=== PATIENT | female | born 1940 | race American Indian/Alaskan Native ===

== ENCOUNTER 2018-03-18 12:35 | Inpatient (IN) | payer MEDICARE ==
[2018-03-18 14:33] LABS: BUN/Creatinine Ratio 22; Blood Urea Nitrogen 13 mg/dL (7-17); Calcium 9.5 mg/dL (8.4-10.2); Hemolysis Index 3
[2018-03-18 14:38] LABS: Basophils % (Auto) 0.5 % (0.0-1.8); Eosinophils # (Auto) 0.1 K/mm3 (0.0-0.4); Eosinophils % (Auto) 1.1 % (0.0-4.3); Hematocrit 32.8 % (30.3-42.9); Hemoglobin 10.4 gm/dl (10.1-14.3); Lymphocytes % (Auto) 15.1 % (13.4-35.0); Mean Corpuscular HGB Conc 32 % (30-34); Mean Corpuscular Hemoglobin 27 pg (28-32); Mean Corpuscular Volume 85 fl (79-97); Monocytes # (Auto) 0.5 K/mm3 (0.0-0.8); Monocytes % (Auto) 7.4 % (0.0-7.3); Platelet Count 315 K/mm3 (140-440); Red Blood Count 3.84 M/mm3 (3.65-5.03); Red Cell Distribution Width 16.5 % (13.2-15.2)
--- NOTE | 2018-03-18 18:42 | Emergency Department Report ---
ED General Adult HPI - General Chief complaint: Extremity Injury, Lower Stated complaint: SWOLLEN LEGS/FLUID Time Seen by Provider: 03/18/18 18:41 Source: patient, family Mode of arrival: Wheelchair Limitations: Physical Limitation - History of Present Illness Initial comments: Patient complains of bilateral leg swelling and redness. There is swelling and is worst on the left. -: Gradual, days(s) (3) Location: lower extremity Radiation: non-radiation Severity scale (0 -10): 6 Improves with: none Worsens with: none Associated Symptoms: shortness of breath Treatments Prior to Arrival: none - Related Data Allergies Allergy/AdvReac Type Severity Reaction Status Date / Time Penicillins AdvReac Shortness Verified 03/18/18 13:43 of Breath ED Review of Systems ROS: Stated complaint: SWOLLEN LEGS/FLUID Other details as noted in HPI Comment: All other systems reviewed and negative Constitutional: denies: chills, fever Eyes: denies: eye pain, eye discharge ENT: denies: ear pain, dental pain Respiratory: orthopnea, shortness of breath Cardiovascular: dyspnea on exertion, edema. denies: chest pain, palpitations Endocrine: no symptoms reported Gastrointestinal: denies: abdominal pain, nausea, vomiting, diarrhea Genitourinary: denies: urgency, dysuria, frequency Musculoskeletal: denies: back pain, joint swelling Skin: denies: rash, change in color Neurological: denies: headache, weakness, numbness, paresthesias Psychiatric: denies: anxiety, depression Hematological/Lymphatic: denies: easy bleeding, easy bruising ED Past Medical Hx - Past Medical History Previous Medical History?: Yes Hx Hypertension: Yes Hx Diabetes: Yes - Surgical History Past Surgical History?: Yes Additional Surgical History: cataract surgery - Social History Smoking Status: Never Smoker Substance Use Type: None ED Physical Exam - General Limitations: No Limitations General appearance: alert - Head Head exam: Present: atraumatic, normocephalic, normal inspection - Eye Eye exam: Present: normal appearance, PERRL, EOMI. Absent: scleral icterus Pupils: Present: normal accommodation - ENT ENT exam: Present: normal exam, normal orophraynx, mucous membranes moist - Neck Neck exam: Present: normal inspection, full ROM. Absent: tenderness - Respiratory Respiratory exam: Present: rales, rhonchi, decreased breath sounds - Cardiovascular Cardiovascular Exam: Present: regular rate, normal rhythm, normal heart sounds - GI/Abdominal GI/Abdominal exam: Present: soft, distended, normal bowel sounds. Absent: tenderness, guarding, rebound - Extremities Exam Extremities exam: Present: normal inspection, full ROM, tenderness, normal capillary refill, pedal edema, calf tenderness, other (cellulitis) - Back Exam Back exam: Present: normal inspection, full ROM. Absent: tenderness - Neurological Exam Neurological exam: Present: alert, oriented X3, CN II-XII intact - Psychiatric Psychiatric exam: Present: normal affect, normal mood - Skin Skin exam: Present: warm, dry, erythema ED Course Vital Signs 03/18/18 03/18/18 03/18/18 13:33 18:22 18:31 Temperature 98.5 F Pulse Rate 83 72 Respiratory 19 Rate Blood Pressure 208/98 225/96 Blood Pressure [Right] O2 Sat by Pulse 97 95 93 Oximetry 03/18/18 03/18/18 03/18/18 18:49 19:00 19:01 Temperature 98.2 F Pulse Rate 82 81 Respiratory 18 22 15 Rate Blood Pressure 213/126 Blood Pressure 213/126 [Right] O2 Sat by Pulse 97 95 95 Oximetry 03/18/18 03/18/18 03/18/18 19:15 19:17 20:00 Temperature 98.2 F Pulse Rate 80 80 70 Respiratory 18 16 Rate Blood Pressure 213/126 187/89 Blood Pressure 213/126 [Right] O2 Sat by Pulse 95 96 Oximetry 03/18/18 03/18/18 21:01 21:03 Temperature Pulse Rate 74 71 Respiratory 16 Rate Blood Pressure 184/87 220/107 Blood Pressure [Right] O2 Sat by Pulse 97 Oximetry - Reevaluation(s) Reevaluation #1: 03/18/18 22:07 Discussed patient's care with the hospitalist on-call Dr. Galvez. He will admit patient to the hospital for further evaluation and management. ED Medical Decision Making - Lab Data Result diagrams: 03/18/18 13:54 03/18/18 13:54 - EKG Data -: EKG Interpreted by Me EKG shows normal: sinus rhythm Rate: normal (75) - EKG Data When compared to previous EKG there are: previous EKG unavailable Interpretation: nonspecific ST-T wave autumn, LVH - Radiology Data Radiology results: report reviewed, image reviewed - Medical Decision Making Uncontrolled hypertension. Congestive heart failure exacerbation. Bilateral leg swelling. R/O DVT Critical Care Time: Yes Critical care time in (mins) excluding proc time.: 40 Critical care attestation.: If time is entered above; I have spent that time in minutes in the direct care of this critically ill patient, excluding procedure time. ED Disposition Clinical Impression: Severe uncontrolled hypertension Congestive heart failure (CHF) Qualifiers: Heart failure type: unspecified Heart failure chronicity: acute on chronic Qualified Code(s): I50.9 - Heart failure, unspecified Cellulitis Qualifiers: Site of cellulitis: extremity Site of cellulitis of extremity: lower extremity Laterality: left Qualified Code(s): L03.116 - Cellulitis of left lower limb Disposition: DC-09 OP ADMIT IP TO THIS HOSP Is pt being admited?: Yes Does the pt Need Aspirin: Yes Condition: Stable Instructions: Hypertension (ED) Referrals: FELA MALLOY MD [Primary Care Provider] - 3-5 Days Time of Disposition: 22:11
[2018-03-18] MEDS ORDERED: NORMODYNE IV ONE ×2 (18:54→19:24)
[2018-03-18] MEDS ORDERED: CLEOCIN 900 MG/50 mL 900 MG/50 ML BAG IV ONE (19:24)
[2018-03-18] MEDS ORDERED: VANCOMYCIN PHARMACY TO DOSE IV SCH (20:00)
[2018-03-18] MEDS ORDERED: VANCOMYCIN/NS 1 GM/250 ML 1 GM/250 ML BAG IV SCH (20:00)
--- NOTE | 2018-03-18 21:00 | XRay Report ---
FINAL REPORT PROCEDURE: XR CHEST 1V AP TECHNIQUE: Chest radiograph anteroposterior view. CPT 85318 HISTORY: leg swelling COMPARISON: No prior studies are available for comparison. FINDINGS: Heart: There is mild cardiomegaly. Mediastinum/Vessels: There is mild degree pulmonary venous congestion. Lungs/Pleural space: Lungs are hyperinflated. There are no confluent infiltrates or mass lesions. Pleural spaces are clear.. Bony thorax: No acute osseous abnormality. Life support devices: None. IMPRESSION: COPD Mild cardiomegaly with mild pulmonary venous congestion.
[2018-03-18] MEDS ORDERED: APRESOLINE IV ONE (21:22)
[2018-03-18] MEDS ORDERED: LASIX IV ONE (21:54)
[2018-03-18] MEDS ORDERED: BABY ASPIRIN PO ONE (22:11)
[2018-03-18] MEDS: VANCOMYCIN 1,750 MG in NACL 0.9% 500 ML 500 ML IV SCH (22:20)
[2018-03-18] MEDS ORDERED: MORPHINE IV PRN (22:22)
[2018-03-18] MEDS ORDERED: ZOFRAN IV PRN (22:22)
[2018-03-18] MEDS ORDERED: D50W (25GM) Syringe IV PRN (22:23)
[2018-03-18 22:32] LABS: Bacteria,Urine 1+ /HPF (Negative); Bilirubin,Urine NEG (Negative); Blood,Urine LG (Negative); Color,Urine Yellow (Yellow); Urobilinogen,Urine < 2.0 mg/dL (<2.0)
[2018-03-18 22:34] LABS: RBC,Urine > 182.0 /HPF (0.0-6.0)
[2018-03-19] MEDS ORDERED: PROVENTIL IH PRN (03:21)
--- NOTE | 2018-03-19 06:34 | History and Physical Report ---
CHIEF COMPLAINT: Swelling of the legs. Other complaints include pain in the lower extremities. HISTORY OF PRESENT ILLNESS: The patient is a 78-year-old female who presented to the Emergency Room with swollen leg and feet with pain. Also, the patient complained of redness of the lower extremities and said that the swelling is more on the left than right. There is no history of trauma. There are associated symptoms of shortness of breath with no chest pain. Also, he has no history of fever or chills, nausea or vomiting. The patient was evaluated in the Emergency Room. The patient complained of having blood in the urine. PAST MEDICAL HISTORY: Pertinent for hypertension and diabetes mellitus. PAST SURGICAL HISTORY: Pertinent for cataract surgery. FAMILY HISTORY: Noncontributory. SOCIAL HISTORY: The patient lives with family, does not smoke, does not drink alcohol and does not use illicit drugs. MEDICATIONS: The patient's home medications are not known at this time. ALLERGIES: THE PATIENT IS ALLERGIC TO PENICILLIN. REVIEW OF SYSTEMS: CONSTITUTIONAL: There is no fever, no chills and no diaphoresis. HEENT: There is no headache or sore throat. CARDIOVASCULAR: There is no chest pain or orthopnea. RESPIRATORY: Shortness of breath is present. No cough. GASTROINTESTINAL: There is no nausea, no vomiting, no abdominal pain, diarrhea or constipation. NEUROLOGICAL: There is no numbness, no dizziness, no altered mental status. MUSCULOSKELETAL: There is swelling of the lower extremity and pain and redness and also there are ulcerations in the lower extremities. DERMATOLOGICAL: There is redness in the lower extremities with swelling and ulcerations all over the lower extremities. GENITOURINARY: There is no dysuria, hematuria or flank pain. Rest of system review is normal. PHYSICAL EXAMINATION: GENERAL: At the time of exam, the patient was found to be alert and oriented x3, and not in acute distress. VITAL SIGNS: At the initial time of presentation showed temperature of 98.5 degrees Fahrenheit, pulse of 83, respirations 19, blood pressure of 208/98 and O2 sat of 97% on room air. HEENT: Showed pupils to be equal, round and reactive to light and accommodation. Extraocular muscles are intact. NECK: Supple with no JVD or carotid bruit. CARDIOVASCULAR: Show normal first and second heart sounds with no gallops or murmurs. The patient had 2+ pitting edema. RESPIRATORY: Showed good air entry on both sides of the lungs with no abnormal breath sounds. GASTROINTESTINAL: Show abdomen to be full, soft and nontender with no organomegaly or rigidity. NEUROLOGIC: Shows no focal deficits. MUSCULOSKELETAL: Showed swollen legs, ankles and feet, worse on the left than right. DERMATOLOGICAL: Show hyperpigmentation of the leg and ankle area and multiple ulcerations involving both lower extremities. GENITOURINARY: Show no costovertebral angle tenderness. PERTINENT LABORATORY DATA AND IMAGING STUDIES: The patient has CBC done with normal white count, normal hemoglobin and normal hematocrit and CBC differential showed elevated monocyte count of 7.4% with elevated segmented neutrophils of 75.9%. Coagulation studies show high D-dimer of 621.7. The patient's chemistry show unremarkable renal function. The patient's total CPK was high with a value of 208. Troponin level came back normal. Brain natriuretic peptide level is high with a value of 1180. The patient's urinalysis show elevated urine pH of 8, large urine ketones with moderate urine leukocyte esterase and elevated urine WBC of 17 with high urine RBC of 182 and 1+ bacteria. IMAGING STUDIES: The patient had a chest x-ray done that shows COPD with mild cardiomegaly with mild pulmonary venous congestion. DIAGNOSES: 1. Cellulitis of the legs. 2. Congestive heart failure. 3. Diabetes mellitus. 4. Chronic obstructive pulmonary disease. 5. Hematuria. 6. Urinary tract infection. PLAN OF ACTION: The patient will be admitted to medical floor. We will have complete echocardiogram done this morning. The patient will have Accu-Chek before meals and at bedtime, followed by sliding scale using regular insulin coverage with low dose sliding scale. The patient will be on IV clindamycin 600 mg q. 8 hours for treatment of cellulitis since the patient is allergic to PENICILLIN. We will also continue IV vancomycin started in the Emergency Room with Pharmacy to adjust the dose. The patient will be on IV morphine 2 mg q. 4 hours as needed for pain. The patient will be on IV Zofran 4 mg q. 8 hours for nausea and vomiting. The patient will also be on IV hydralazine 10 mg q. 4 hours for hypertension when blood pressure is 160/90 or more. The patient will be on IV Lasix 40 mg daily. We will have bilateral venous Doppler done this morning because of swollen legs with elevated D-dimer. The patient will be on albuterol nebulizer q. 6 hours as needed for shortness of breath. The patient's home medications will be reconciled and started accordingly when they are known. The patient will be on sequential compressive device with heparin held at this time because of hematuria. The patient's diet will be consistent with carbohydrate 2 g sodium diet. JOB# [id number] OCN/NTS MTDD
[2018-03-19] MEDS: HumuLIN R SUB-Q SCH ×4 (10:54→22:52)
[2018-03-19] MEDS: CLEOCIN 600 MG/50 mL 600 MG/50 ML BAG IV SCH ×4 (12:07→22:54)
[2018-03-19] MEDS: LASIX IV SCH (12:07)
[2018-03-19] MEDS: APRESOLINE IV PRN ×2 (14:34→15:25)
[2018-03-19] MEDS ORDERED: NON-FORMULARY (Oxybutynin Chloride [Ditropan Xl] 10 MG) PO SCH (15:45)
--- NOTE | 2018-03-19 16:12 | Progress Note ---
Assessment and Plan Assessment and plan: Cellulitis both legs. Continue Clindamycin and Vancomycin Hypertensive urgency. Resume home meds:. Amlodipine and Metoprolol. Add Hydralazine iv prn Diabetes mellitus type 2. Check fingerstick glucose q ac and hs Acute pulmonary edema. Started on Lasix. To r/o CHF. Patient denies history of CHF. Elevated d-dimer. CT Al[place]a chest ordered. DVT prophylaxis. Heparin subcut Full code status History Interval history: Bilateral leg swelling, shortness of breath, Hospitalist Physical - Physical exam Narrative exam: General: Not in acute distress, lying in bed, morbidly obese HEENT:Normocephalic, atraumatic Neck:supple,no JVD Lungs: Clear to auscultation bilaterally, no crackles, no wheeze Heart:S1 and S2 regular, no murmurs, rubs or gallop Abd: soft, non tender, non distended, normal bowel sounds Ext: Bilateral lower ext edema, dark skin discoloration, few small ulcers, no clubbing, no cyanosis Neuro: AAO x 3, moves all extremities. - Constitutional Vitals: Temp Pulse Resp BP Pulse Ox 98.4 F 58 L 13 190/100 90 03/19/18 05:25 03/19/18 15:25 03/19/18 00:01 03/19/18 15:25 03/19/18 00:01 Results - Labs CBC & Chem 7: 03/18/18 13:54 03/18/18 13:54 Labs: Laboratory Last Values WBC 6.9 K/mm3 (4.5-11.0) 03/18/18 13:54 RBC 3.84 M/mm3 (3.65-5.03) 03/18/18 13:54 Hgb 10.4 gm/dl (10.1-14.3) 03/18/18 13:54 Hct 32.8 % (30.3-42.9) 03/18/18 13:54 MCV 85 fl (79-97) 03/18/18 13:54 MCH 27 pg (28-32) L 03/18/18 13:54 MCHC 32 % (30-34) 03/18/18 13:54 RDW 16.5 % (13.2-15.2) H 03/18/18 13:54 Plt Count 315 K/mm3 (140-440) 03/18/18 13:54 Lymph % (Auto) 15.1 % (13.4-35.0) 03/18/18 13:54 [place] % (Auto) 7.4 % (0.0-7.3) H 03/18/18 13:54 Eos % (Auto) 1.1 % (0.0-4.3) 03/18/18 13:54 Baso % (Auto) 0.5 % (0.0-1.8) 03/18/18 13:54 Lymph # 1.0 K/mm3 (1.2-5.4) L 03/18/18 13:54 [place] # 0.5 K/mm3 (0.0-0.8) 03/18/18 13:54 Eos # 0.1 K/mm3 (0.0-0.4) 03/18/18 13:54 Baso # 0.0 K/mm3 (0.0-0.1) 03/18/18 13:54 Seg Neutrophils % 75.9 % (40.0-70.0) H 03/18/18 13:54 Seg Neutrophils # 5.3 K/mm3 (1.8-7.7) 03/18/18 13:54 D-Dimer 621.73 ng/mlDDU (0-234) H 03/18/18 19:45 Sodium 139 mmol/L (137-145) 03/18/18 13:54 Potassium 4.1 mmol/L (3.6-5.0) 03/18/18 13:54 Chloride 98.6 mmol/L (98-107) 03/18/18 13:54 Carbon Dioxide 28 mmol/L (22-30) 03/18/18 13:54 Anion Gap 17 mmol/L 03/18/18 13:54 BUN 13 mg/dL (7-17) 03/18/18 13:54 Creatinine 0.6 mg/dL (0.7-1.2) L 03/18/18 13:54 Estimated GFR > 60 ml/min 03/18/18 13:54 BUN/Creatinine Ratio 22 % 03/18/18 13:54 Glucose 114 mg/dL (65-100) H 03/18/18 13:54 POC Glucose 115 (70-105) H 03/19/18 15:50 Calcium 9.5 mg/dL (8.4-10.2) 03/18/18 13:54 Total Creatine Kinase 208 units/L (30-135) H 03/18/18 19:45 Troponin T < 0.010 ng/mL (0.00-0.029) 03/18/18 19:45 NT-Pro-B Natriuret Pep 1180 pg/mL (0-900) H 03/18/18 19:45 Urine Color Yellow (Yellow) 03/18/18 22:00 Urine Turbidity Clear (Clear) 03/18/18 22:00 Urine pH 8.0 (5.0-7.0) H 03/18/18 22:00 Ur Specific [place] 1.008 (1.003-1.030) 03/18/18 22:00 Urine Protein 30 mg/dl mg/dL (Negative) 03/18/18 22:00 Urine Glucose (UA) Neg mg/dL (Negative) 03/18/18 22:00 Urine Ketones Neg mg/dL (Negative) 03/18/18 22:00 Urine Blood Lg (Negative) 03/18/18 22:00 Urine Nitrite Neg (Negative) 03/18/18 22:00 Urine Bilirubin Neg (Negative) 03/18/18 22:00 Urine Urobilinogen < 2.0 mg/dL (<2.0) 03/18/18 22:00 Ur Leukocyte Esterase Mod (Negative) 03/18/18 22:00 Urine WBC (Auto) 17.0 /HPF (0.0-6.0) H 03/18/18 22:00 Urine RBC (Auto) > 182.0 /HPF (0.0-6.0) 03/18/18 22:00 U Epithel Cells (Auto) 2.0 /HPF (0-13.0) 03/18/18 22:00 Urine Bacteria (Auto) 1+ /HPF (Negative) 03/18/18 22:00
[2018-03-19] MEDS: HEPARIN SUB-Q SCH ×2 (16:45→22:52)
[2018-03-19] MEDS: NORVASC PO SCH (16:45)
[2018-03-19] MEDS: DITROPAN XL PO SCH (16:45)
[2018-03-19] MEDS: TOPROL XL PO SCH (16:45)
[2018-03-19] MEDS ORDERED: LATANOPROST 0.005% OU SCH (18:00)
[2018-03-19] MEDS ORDERED: NON-FORMULARY (Bimatoprost [Lumigan 0.01%] 1 DROP) OP SCH (18:00)
--- NOTE | 2018-03-19 20:33 | Cat Scan Report ---
FINAL REPORT PROCEDURE: CT ANGIO CHEST TECHNIQUE: Computerized tomographic angiography of the chest was performed after the IV injection of iodinated nonionic contrast including image processing. The image data was postprocessed using 2-dimensional multiplanar reformatted (MPR) and 3-dimensional (MIP and/or volume rendered) techniques. HISTORY: elevated d-dimer COMPARISON: No prior studies are available for comparison. FINDINGS: There is suboptimal opacification of the pulmonary arterial tree. No obvious filling defects are identified in the pulmonary arterial tree. Aorta is of normal caliber without evidence of dissection. Hilar structures are within normal limits. There is no lymphadenopathy. An ill-defined hypodense nodule is noted involving the right lobe thyroid measuring 3.3 x 4.5 centimeters. Small hiatal hernia is noted. Bilateral lungs and pleural spaces are clear. Moderate degree degenerative changes are noted involving costovertebral joints bilaterally. Vertebral height is normal. IMPRESSION: Limited study due to suboptimal opacification of pulmonary arterial tree. However there is no obvious evidence of pulmonary embolism. No acute pulmonary process A dominant mass is noted in the right lobe thyroid. A neoplasm cannot be excluded. Ultrasound evaluation is recommended.
[2018-03-19] MEDS: LATANOPROST 0.005% OU SCH (22:51)
[2018-03-19] MEDS: VANCOMYCIN 1,750 MG in NACL 0.9% 500 ML 500 ML IV SCH (22:52)
[2018-03-20] MEDS: HEPARIN SUB-Q SCH ×3 (06:24→22:12)
[2018-03-20] MEDS: CLEOCIN 600 MG/50 mL 600 MG/50 ML BAG IV SCH ×3 (06:24→22:13)
[2018-03-20] MEDS: HumuLIN R SUB-Q SCH ×4 (08:21→22:15)
[2018-03-20] MEDS: LASIX IV SCH (10:15)
[2018-03-20] MEDS: TOPROL XL PO SCH (10:16)
[2018-03-20] MEDS: DITROPAN XL PO SCH (10:16)
[2018-03-20] MEDS: NORVASC PO SCH (10:16)
--- NOTE | 2018-03-20 12:53 | Consultation ---
History of Present Illness Consult date: 03/20/18 Consult reason: shortness of breath, other (Pulmonary edema) History of present illness: This is a 78yr old woman who gives a history of chronic bilateral lower extremity venous insufficiency, diabetes and hypertension. She denies a prior cardiac history. There is no prior cardiac workup. She was brought to this hospital with complaints of edema with weeping of legs. A cardiac consultation was requested for shortness of breath and pulmonary edema. A chest xray reports mild cardiomegaly with mild congestion. Patient denies shortness of breath and chest pain. Further cardiac evaluation with an echocardiogram reveals a normal left ventricular systolic function, ejection fraction 55-60%. 12 lead ECG is benign, a normal sinus rhythm. Medications and Allergies Allergies Allergy/AdvReac Type Severity Reaction Status Date / Time Penicillins AdvReac Shortness Verified 03/18/18 13:43 of Breath Home Medications Medication Instructions Recorded Confirmed Last Taken Type Amlodipine Besylate [Norvasc] 5 mg PO DAILY 03/19/18 03/19/18 Unknown History AtorvaSTATin [Lipitor] 10 mg PO QHS 03/19/18 03/19/18 Unknown History Bimatoprost [Lumigan 0.01%] 1 drop OP QPM 03/19/18 03/19/18 Unknown History Metoprolol Succinate 100 mg PO DAILY 03/19/18 03/19/18 Unknown History Oxybutynin Chloride [Ditropan Xl] 10 mg PO QDAY 03/19/18 03/19/18 Unknown History Active Meds: Active Medications Albuterol (Proventil) 2.5 mg IH Q4HRT PRN PRN Reason: Shortness Of Breath Amlodipine Besylate (Norvasc) 5 mg PO DAILY [facility] Last Admin: 03/20/18 10:16 Dose: 5 mg Atorvastatin Calcium (Lipitor) 10 mg PO QHS [facility] Last Admin: 03/19/18 23:09 Dose: 10 mg Dextrose (D50w (25gm) Syringe) 50 ml IV PRN PRN PRN Reason: Hypoglycemia Furosemide (Lasix) 40 mg IV DAILY [facility] Last Admin: 03/20/18 10:15 Dose: 40 mg Heparin Sodium (Porcine) (Heparin) 5,000 unit SUB-Q Q8HR [facility] Last Admin: 03/20/18 06:24 Dose: 5,000 unit Hydralazine HCl (Apresoline) 10 mg IV Q4H PRN PRN Reason: Hypertension Last Admin: 03/19/18 15:25 Dose: 10 mg Vancomycin HCl 1,750 mg/ (Sodium Chloride) 517.5 mls @ 258.75 mls/hr IV Q24H [facility] Last Admin: 03/19/18 22:52 Dose: 258.75 mls/hr Clindamycin HCl (Cleocin 600 Mg/50 Ml) 600 mg in 50 mls @ 100 mls/hr IV Q8HR [facility]; Protocol Last Admin: 03/20/18 06:24 Dose: 100 mls/hr Insulin Human Regular (Humulin R) 0 units SUB-Q AC [facility]; Protocol Last Admin: 03/20/18 08:21 Dose: Not Given Insulin Human Regular (Humulin R) 0 units SUB-Q QHS [facility]; Protocol Last Admin: 03/19/18 22:52 Dose: Not Given Latanoprost (Latanoprost 0.005%) 1 drops OU HS [facility] Last Admin: 03/19/18 22:51 Dose: 1 drops Metoprolol Succinate (Toprol Xl) 100 mg PO DAILY [facility] Last Admin: 03/20/18 10:16 Dose: 100 mg Morphine Sulfate (Morphine) 2 mg IV Q4H PRN PRN Reason: Pain, Moderate (4-6) Ondansetron HCl (Zofran) 4 mg IV Q8H PRN PRN Reason: Nausea And Vomiting Oxybutynin Chloride (Ditropan Xl) 10 mg PO QDAY [facility] Last Admin: 03/20/18 10:16 Dose: 10 mg Vancomycin HCl (Vancomycin Pharmacy To Dose) 1 each IV PKCONSULT [facility] Physical Examination Vital Signs Temp Pulse BP Pulse Ox 98.5 F 83 208/98 97 03/18/18 13:33 03/18/18 13:33 03/18/18 13:33 03/18/18 13:33 General appearance: no acute distress HEENT: Positive: PERRL Cardiac: Positive: Reg Rate and Rhythm Lungs: Positive: Decreased Breath Sounds Neuro: Positive: Grossly Intact Results 03/18/18 13:54 03/18/18 13:54 Assessment and Plan Chronic bilateral lower extremity venous insufficiency Diabetes Hypertension Echocardiogram reveals a normal left ventricular systolic function, ejection fraction 55-60%. No further cardiac workup indicated. Patient will f/u with [facility] in 2 weeks for further outpatient cardiac evaluation with a persantine thallium test.
[2018-03-20] MEDS ORDERED: NORVASC PO STA (13:16)
--- NOTE | 2018-03-20 13:17 | Progress Note ---
Assessment and Plan Assessment and plan: Cellulitis both legs. Continue Clindamycin and Vancomycin Hypertensive urgency. BP still uncontrolled Resumed home meds:. Amlodipine and Metoprolol. Add Hydralazine 50mg po q8hr. Increase Norvasc to 10mg po daily Diabetes mellitus type 2. Check fingerstick glucose q ac and hs Acute pulmonary edema. Started on Lasix. To r/o CHF. Patient denies history of CHF. Elevated D-dimer. CT Angio chest ordered. DVT prophylaxis. Heparin subcut Full code status History Interval history: Bilateral leg swelling,improving Less shortness of breath, Hospitalist Physical - Physical exam Narrative exam: General: Not in acute distress, lying in bed, morbidly obese HEENT:Normocephalic, atraumatic Neck:supple,no JVD Lungs: Clear to auscultation bilaterally, no crackles, no wheeze Heart:S1 and S2 regular, no murmurs, rubs or gallop Abd: soft, non tender, non distended, normal bowel sounds Ext: Bilateral lower ext edema, dark skin discoloration, few small ulcers, no clubbing, no cyanosis Neuro: AAO x 3, moves all extremities. - Constitutional Vitals: Temp Pulse Resp BP Pulse Ox 97.4 F L 74 18 176/97 95 03/20/18 12:26 03/20/18 12:26 03/20/18 12:26 03/20/18 12:26 03/20/18 12:26 General appearance: Present: no acute distress Results - Labs CBC & Chem 7: 03/18/18 13:54 03/18/18 13:54 Labs: Laboratory Last Values WBC 6.9 K/mm3 (4.5-11.0) 03/18/18 13:54 RBC 3.84 M/mm3 (3.65-5.03) 03/18/18 13:54 Hgb 10.4 gm/dl (10.1-14.3) 03/18/18 13:54 Hct 32.8 % (30.3-42.9) 03/18/18 13:54 MCV 85 fl (79-97) 03/18/18 13:54 MCH 27 pg (28-32) L 03/18/18 13:54 MCHC 32 % (30-34) 03/18/18 13:54 RDW 16.5 % (13.2-15.2) H 03/18/18 13:54 Plt Count 315 K/mm3 (140-440) 03/18/18 13:54 Lymph % (Auto) 15.1 % (13.4-35.0) 03/18/18 13:54 [place] % (Auto) 7.4 % (0.0-7.3) H 03/18/18 13:54 Eos % (Auto) 1.1 % (0.0-4.3) 03/18/18 13:54 Baso % (Auto) 0.5 % (0.0-1.8) 03/18/18 13:54 Lymph # 1.0 K/mm3 (1.2-5.4) L 03/18/18 13:54 [place] # 0.5 K/mm3 (0.0-0.8) 03/18/18 13:54 Eos # 0.1 K/mm3 (0.0-0.4) 03/18/18 13:54 Baso # 0.0 K/mm3 (0.0-0.1) 03/18/18 13:54 Seg Neutrophils % 75.9 % (40.0-70.0) H 03/18/18 13:54 Seg Neutrophils # 5.3 K/mm3 (1.8-7.7) 03/18/18 13:54 D-Dimer 621.73 ng/mlDDU (0-234) H 03/18/18 19:45 Sodium 139 mmol/L (137-145) 03/18/18 13:54 Potassium 4.1 mmol/L (3.6-5.0) 03/18/18 13:54 Chloride 98.6 mmol/L (98-107) 03/18/18 13:54 Carbon Dioxide 28 mmol/L (22-30) 03/18/18 13:54 Anion Gap 17 mmol/L 03/18/18 13:54 BUN 13 mg/dL (7-17) 03/18/18 13:54 Creatinine 0.6 mg/dL (0.7-1.2) L 03/18/18 13:54 Estimated GFR > 60 ml/min 03/18/18 13:54 BUN/Creatinine Ratio 22 % 03/18/18 13:54 Glucose 114 mg/dL (65-100) H 03/18/18 13:54 POC Glucose 112 (70-105) H 03/20/18 12:22 Calcium 9.5 mg/dL (8.4-10.2) 03/18/18 13:54 Total Creatine Kinase 208 units/L (30-135) H 03/18/18 19:45 Troponin T < 0.010 ng/mL (0.00-0.029) 03/18/18 19:45 NT-Pro-B Natriuret Pep 1180 pg/mL (0-900) H 03/18/18 19:45 Urine Color Yellow (Yellow) 03/18/18 22:00 Urine Turbidity Clear (Clear) 03/18/18 22:00 Urine pH 8.0 (5.0-7.0) H 03/18/18 22:00 Ur Specific [place] 1.008 (1.003-1.030) 03/18/18 22:00 Urine Protein 30 mg/dl mg/dL (Negative) 03/18/18 22:00 Urine Glucose (UA) Neg mg/dL (Negative) 03/18/18 22:00 Urine Ketones Neg mg/dL (Negative) 03/18/18 22:00 Urine Blood Lg (Negative) 03/18/18 22:00 Urine Nitrite Neg (Negative) 03/18/18 22:00 Urine Bilirubin Neg (Negative) 03/18/18 22:00 Urine Urobilinogen < 2.0 mg/dL (<2.0) 03/18/18 22:00 Ur Leukocyte Esterase Mod (Negative) 03/18/18 22:00 Urine WBC (Auto) 17.0 /HPF (0.0-6.0) H 03/18/18 22:00 Urine RBC (Auto) > 182.0 /HPF (0.0-6.0) 03/18/18 22:00 U Epithel Cells (Auto) 2.0 /HPF (0-13.0) 03/18/18 22:00 Urine Bacteria (Auto) 1+ /HPF (Negative) 03/18/18 22:00
[2018-03-20] MEDS: APRESOLINE PO SCH ×2 (13:30→22:12)
[2018-03-20] MEDS: LATANOPROST 0.005% OU SCH (22:14)
[2018-03-20] MEDS: VANCOMYCIN 1,750 MG in NACL 0.9% 500 ML 500 ML IV SCH (22:14)
[2018-03-21] MEDS: HEPARIN SUB-Q SCH ×2 (05:28→13:37)
[2018-03-21] MEDS: APRESOLINE PO SCH ×2 (05:29→13:36)
[2018-03-21] MEDS: CLEOCIN 600 MG/50 mL 600 MG/50 ML BAG IV SCH ×2 (05:30→13:36)
[2018-03-21] MEDS ORDERED: NORVASC PO SCH (08:00)
[2018-03-21] MEDS: HumuLIN R SUB-Q SCH ×2 (08:19→12:58)
[2018-03-21] MEDS: DITROPAN XL PO SCH (09:35)
[2018-03-21] MEDS: TOPROL XL PO SCH (09:38)
[2018-03-21] MEDS: LASIX IV SCH (09:39)
--- NOTE | 2018-03-21 10:57 | Progress Note ---
Assessment and Plan Acute diastolic heart failure class III symptoms on presentation improving Chronic LE edema and bilateral venostasis Normal LVEF Type II DM Systemic Hypertension Morbid obesity Recommendations: Afterload reduction and gentle diuresis for acute diastolic heart failure Outpatient ischemic evaluation Subjective Date of service: 03/21/18 Principal diagnosis: Diastolic heart failure Interval history: Reports feeling much better Objective Vital Signs Temp Pulse Resp BP BP Pulse Ox 03/21/18 05:29 67 145/67 03/21/18 04:19 67 145/67 100 03/21/18 04:18 98.4 F 66 18 145/67 99 03/20/18 23:57 98.5 F 76 18 149/66 100 03/20/18 23:50 77 03/20/18 22:12 77 149/69 03/20/18 19:06 77 149/69 97 03/20/18 19:05 98.4 F 78 20 149/69 96 03/20/18 15:57 98.1 F 73 18 146/66 95 03/20/18 12:26 97.4 F L 74 18 176/97 95 - Physical Examination Narrative exam: Physical examination Vitals reviewed GEN: No acute distress noted, moderately obese HEENT: Carotids 2+ NECK: Supple CVS: S1 and S2 heard no significant murmur or gallop noted LUNGS/CHEST: Normal auscultation ABD: Soft nontender Extremities: dry 1 + edema NEURO: Alert moves all all 4 extremities PSY: Stable HEENT: Positive: PERRL Neuro: Positive: Grossly Intact
[2018-03-21 14:41] VITALS: BP 149/70
--- NOTE | 2018-03-21 16:29 | Discharge Summary ---
Providers - Providers Date of Admission: 03/18/18 22:14 Date of discharge: 03/21/18 Attending physician: MABEL KRAMER 03/19/18 16:16 Consult to Cardiology [CONS] Routine Consulting Provider: RAJAN WOODS Reason For Exam: Shortness of breath,pulmonary edema Primary care physician: FELA MALLOY Hospitalization Condition: Fair Disposition: DC/[place]-06 HOME UNDER HOME [facility] Core Measure Documentation - Palliative Care Palliative Care/ Comfort Measures: Not Applicable - Core Measures Any of the following diagnoses?: heart failure - Heart Failure Discharge Requirements LUCI/ARB for LVSD if EF <40%: Not Applicable Beta bernie at discharge: Yes Exam - Constitutional Vitals: Temp Pulse Resp BP Pulse Ox 97.8 F 76 22 149/70 95 03/21/18 12:38 03/21/18 14:39 03/21/18 12:38 03/21/18 14:39 03/21/18 14:39 Plan Activity: advance as tolerated Diet: low fat, low cholesterol, low salt Special Instructions: physical therapy, home health RN Additional Instructions: 1.Follow up with PCP in 3-5 days. 2.Follow up with Dr. Carreno in 1 week. 3.Follow up with PCP in 2-3 days to follow up about thyroid mass. 4.Follow up with ENT Surgeon, Dr. Baum in 2-3 days for evaluation of thyroid mass. 5.Home health RN and home health PT Follow up with: FELA MALLOY MD [Primary Care Provider] - 3-5 Days Prescriptions: amLODIPine [Norvasc] 10 mg PO DAILY #30 tab Clindamycin [Clindamycin CAP] 300 mg PO Q8H #5 cap Furosemide [Lasix] 20 mg PO QDAY #30 tablet Hydralazine HCl 50 mg PO TID #90 tablet
--- NOTE | 2018-03-24 06:56 | Ultrasound Report ---
FINAL REPORT PROCEDURE: THYROID UPDATE AND SCAN TECHNIQUE: Focused real-time sonography in multiple planes of the below described organs, glands and soft tissues of the neck was performed with image documentation. CPT 35838 HISTORY: thyroid mass; thyroid scan COMPARISON: No prior studies are available for comparison. FINDINGS: The right thyroid lobe measures 7.8 x 3.8 x 6.5. Left thyroid lobe measures 4.8 x 1.9 x 81.5 centimeters. Thyroid isthmus measures 11.6 millimeters. There is a mass in the right thyroid measuring 4.5 x 3.1 x 5.7 centimeters. There is a nodule in the thyroid isthmus measuring 12 x 9 x 9 millimeters. IMPRESSION: Multinodular goiter. Malignant right thyroid nodule cannot be entirely excluded on the basis of ultrasound alone.
== END 2018-03-21 08:45 | disposition home health service (06) | DRG 602 ==
LOC: ED 12:35 → 2B-ACE 22:14 → 4A 03-19 00:05
PROVIDERS: ADMIT Internal Medicine; ATTEND Internal Medicine
DX: L03.115 Cellulitis of right lower limb (principal); I50.31 Acute diastolic (congestive) heart failure; N39.0 Urinary tract infection, site not specified; Z68.41 Body mass index [BMI] 40.0-44.9, adult; I11.0 Hypertensive heart disease with heart failure; L03.116 Cellulitis of left lower limb; I16.0 Hypertensive urgency; R31.9 Hematuria, unspecified; Z88.0 Allergy status to penicillin; E11.9 Type 2 diabetes mellitus without complications; Z98.49 Cataract extraction status, unspecified eye; J44.9 Chronic obstructive pulmonary disease, unspecified; I87.8 Other specified disorders of veins; E66.01 Morbid (severe) obesity due to excess calories
CPT/HCPCS: 36415; 71045; 71275; 76536; 80048; 81001; 82550; 82962; 83880; 84484; 85025; 85379; 93005; 93010; 93306; 93970; 99291; A9270-GY; J0360; J1644; J1940; J3370; J7040; Q9967

== ENCOUNTER 2018-12-28 10:22 | Outpatient (CLI) | payer MEDICARE ==
--- NOTE | 2018-12-28 15:27 | Mammography Report ---
BILATERAL DIGITAL SCREENING MAMMOGRAM with CAD: 12/28/18 10:22:00 CLINICAL: Routine screening. COMPARISON:None available. However, the patient indicated that she has had a previous mammogram at [facility]. FINDINGS: The patient was unable to stand so the examination was performed in a wheelchair. Suboptimal positioning is also related to the fact that the arms could not be removed from the wheelchair. There are scattered areas of fibroglandular density. No mass, architectural distortion or suspicious calcifications. IMPRESSION: No mammographic evidence of malignancy. BI-RADS CATEGORY: 2 -- Benign RECOMMENDATION: Routine mammographic screening in one year. We will attempt to obtain a comparison mammogram and make an addendum to this report. COMMENT: Patient follow-up letters are generated by our [employer] application.
== END 2018-12-28 10:23 | disposition home or self-care (01) ==
LOC: MAMMO 10:22
PROVIDERS: ATTEND Internal Medicine
DX: Z12.31 Encounter for screening mammogram for malignant neoplasm of breast (principal); I11.0 Hypertensive heart disease with heart failure; I50.31 Acute diastolic (congestive) heart failure; E66.01 Morbid (severe) obesity due to excess calories
CPT/HCPCS: 77067

== ENCOUNTER 2019-04-22 15:03 | Outpatient (CLI) | payer MEDICARE ==
--- NOTE | 2019-04-22 16:16 | XRay Report ---
LEFT SHOULDER HISTORY: Pain. COMPARISON: None. TECHNIQUE: 3 views of the left shoulder were obtained. FINDINGS Bones: No fracture or dislocation. Joint spaces: Mild glenohumeral joint and acromioclavicular joint arthritis. Soft tissues: No significant abnormality. Additional findings: None. IMPRESSION: 1. Mild arthritis. Signer Name: Naren Best MD Signed: 04/22/2019 4:12 PM Workstation Name: [id number]
== END 2019-04-22 15:04 | disposition home or self-care (01) ==
LOC: XRAY 15:03
PROVIDERS: ATTEND Internal Medicine
DX: M19.012 Primary osteoarthritis, left shoulder (principal); I11.0 Hypertensive heart disease with heart failure; I50.31 Acute diastolic (congestive) heart failure

== ENCOUNTER 2019-04-27 08:54 | Outpatient (CLI) | payer MEDICARE ==
[2019-04-27 10:42] LABS: Chol/HDL Ratio 3.36 %
[2019-04-30 11:20] LABS: Vitamin D, 25-OH, D2 34 ng/mL
== END 2019-04-27 08:55 | disposition home or self-care (01) ==
LOC: LAB 08:54
PROVIDERS: ATTEND Internal Medicine
DX: E11.9 Type 2 diabetes mellitus without complications (principal); E55.9 Vitamin D deficiency, unspecified; E78.5 Hyperlipidemia, unspecified; I11.0 Hypertensive heart disease with heart failure; I50.9 Heart failure, unspecified
CPT/HCPCS: 36415; 80061; 82306; 83036

== ENCOUNTER 2019-07-20 10:15 | Emergency (ER) | payer MEDICARE ==
[2019-07-20] MEDS ORDERED: amLODIPine 5 MG TAB PO ONE (11:45)
--- NOTE | 2019-07-20 12:47 | Event Note ---
Date of service: 07/20/19 Face to Face: Patient sent to the emergency room for evaluation of asymptomatic and painless hypertension. Patient endorsed to my colleague that she's been sporadically compliant with her antihypertensive therapy. However, once family into the room, she endorsed compliance with her antihypertensive therapy. The patient does not endorse headache, neck pain, chest pain, loss of vision at this time. She is afebrile with reassuring vital signs and appears quite comfortable. Her main complaint appears to be chronic dental issues, and chronic arthritic discomfort. Patient and family were counseled that they should remain compliant with antihypertensive therapy, and that emergent decrease of blood pressure in the ER is not recommended, as it may induce acute end organ dysfunction. Please reference the [employer] clinical policy on hypertension which is not acutely symptomatic. Patient was specifically counseled that long-term complications of hypertension may result in disability, paralysis, stroke, heart attack, loss of quality of life. Daughter at the [facility], and indicates that they're reliable to follow-up at the outpatient primary care doctor. Vital Signs 07/20/19 07/20/19 07/20/19 10:28 11:03 12:27 Temperature 99 F Pulse Rate 82 83 84 Respiratory 18 16 16 Rate Blood Pressure 201/91 211/120 203/96 [Right] O2 Sat by Pulse 99 97 98 Oximetry
--- NOTE | 2019-07-20 13:25 | Emergency Department Report ---
ED General Adult HPI - General Chief complaint: High BP Stated complaint: HBP Time Seen by Provider: 07/20/19 11:41 Source: patient Mode of arrival: Wheelchair Limitations: Physical Limitation - History of Present Illness Initial comments: 79-year-old Citizen Of [place] female with a known past medical history obesity, heart disease/CHF, diabetes, hypertension presents to emergency department with her daughter D dentist office. Apparently her blood pressure was 246/126. Ms. Alex she denies any chest pain or headache. Reports no blurred vision, no numbness, no tingling no weakness. No vision changes. States she feels normal but admits to not utilizing her blood pressure medication this morning and also she did report when going compliance issues. She denies any adverse effect to the medication when she utilizes it. Radiation: non-radiation Severity scale (0 -10): 0 Consistency: constant Improves with: none Worsens with: none Treatments Prior to Arrival: none - Related Data Home Medications Medication Instructions Recorded Confirmed Last Taken AtorvaSTATin [Lipitor] 10 mg PO QHS 03/19/18 03/19/18 Unknown Bimatoprost [Lumigan 0.01%] 1 drop OP QPM 03/19/18 03/19/18 Unknown Metoprolol Succinate 100 mg PO DAILY 03/19/18 03/19/18 Unknown Oxybutynin Chloride [Ditropan Xl] 10 mg PO QDAY 03/19/18 03/19/18 Unknown Previous Rx's Medication Instructions Recorded Last Taken Type Clindamycin [Clindamycin CAP] 300 mg PO Q8H #5 cap 03/21/18 Unknown Rx Furosemide [Lasix] 20 mg PO QDAY #30 tablet 03/21/18 Unknown Rx Hydralazine HCl 50 mg PO TID #90 tablet 03/21/18 Unknown Rx amLODIPine [Norvasc] 10 mg PO DAILY #30 tab 03/21/18 Unknown Rx Allergies Allergy/AdvReac Type Severity Reaction Status Date / Time Penicillins AdvReac Shortness Verified 07/20/19 10:30 of Breath ED Review of Systems ROS: Stated complaint: HBP Other details as noted in HPI Comment: All other systems reviewed and negative ED Past Medical Hx - Past Medical History Previous Medical History?: Yes Hx Hypertension: Yes Hx Congestive Heart Failure: Yes Hx Diabetes: Yes - Surgical History Past Surgical History?: Yes Additional Surgical History: cataract surgery - Social History Smoking Status: Never Smoker Substance Use Type: None - Medications Home Medications: Home Medications Medication Instructions Recorded Confirmed Last Taken Type AtorvaSTATin [Lipitor] 10 mg PO QHS 03/19/18 03/19/18 Unknown History Bimatoprost [Lumigan 0.01%] 1 drop OP QPM 03/19/18 03/19/18 Unknown History Metoprolol Succinate 100 mg PO DAILY 03/19/18 03/19/18 Unknown History Oxybutynin Chloride [Ditropan Xl] 10 mg PO QDAY 03/19/18 03/19/18 Unknown History Clindamycin [Clindamycin CAP] 300 mg PO Q8H #5 cap 03/21/18 Unknown Rx Furosemide [Lasix] 20 mg PO QDAY #30 tablet 03/21/18 Unknown Rx Hydralazine HCl 50 mg PO TID #90 tablet 03/21/18 Unknown Rx amLODIPine [Norvasc] 10 mg PO DAILY #30 tab 03/21/18 Unknown Rx ED Physical Exam - General Limitations: Physical Limitation General appearance: alert, in no apparent distress - Head Head exam: Present: atraumatic, normocephalic - Eye Eye exam: Present: normal appearance, PERRL, EOMI Pupils: Present: normal accommodation - ENT ENT exam: Present: normal exam, mucous membranes moist - Neck Neck exam: Present: normal inspection - Respiratory Respiratory exam: Present: normal lung sounds bilaterally. Absent: respiratory distress, wheezes, rales, rhonchi, chest wall tenderness, accessory muscle use, decreased breath sounds - Cardiovascular Cardiovascular Exam: Present: regular rate, normal rhythm. Absent: systolic murmur, diastolic murmur, rubs, gallop - GI/Abdominal GI/Abdominal exam: Present: soft, normal bowel sounds - Extremities Exam Extremities exam: Present: normal inspection - Back Exam Back exam: Present: normal inspection. Absent: CVA tenderness (R), CVA tenderness (L) - Neurological Exam Neurological exam: Present: alert, oriented X3, CN II-XII intact. Absent: altered, motor sensory deficit - Psychiatric Psychiatric exam: Present: normal affect, normal mood - Skin Skin exam: Present: warm, dry, intact, normal color. Absent: rash ED Course Vital Signs 07/20/19 07/20/19 07/20/19 10:28 11:03 12:27 Temperature 99 F Pulse Rate 82 83 84 Respiratory 18 16 16 Rate Blood Pressure 201/91 211/120 203/96 [Right] O2 Sat by Pulse 99 97 98 Oximetry ED Medical Decision Making - Medical Decision Making 79-year-old Citizen [place] female with chronic history of hypertension and history current history of medication noncompliance presented to emergency department via her dentist for elevated blood pressure. States her blood pressure primarily was in the low 200s over 90-100. She is asymptomatic at this time alert and oriented 3 understands the importance of compliance and she also understands the risks she is taken with a lack of compliance. I discussed with her in detail the need for compliance and the risk. She is aware that a lack of compliance could result in the following but not limited to, heart disease, kidney disease, stroke, heart failure, paralysis, pain, headache Critical care attestation.: If time is entered above; I have spent that time in minutes in the direct care of this critically ill patient, excluding procedure time. ED Disposition Clinical Impression: Chronic hypertension Disposition: DC-01 TO HOME OR SELFCARE Is pt being admited?: No Does the pt Need Aspirin: No Condition: Stable Instructions: Hypertension (ED) Additional Instructions: Results please be compliant with her hypertension medications as we discussed. You unable to be completely compliant a mirror ER complementing medical issues including but not limited to heart attack, stroke, paralysis, chronic kidney disease, pain, headache, heart failure. Referrals: PRIMARY CARE, [Primary Care Provider] - 3-5 Days
[2019-07-20 13:38] VITALS: BP 211/98
== END 2019-07-20 13:40 | disposition home or self-care (01) ==
LOC: ED 10:15
DX: I11.0 Hypertensive heart disease with heart failure (principal); I50.9 Heart failure, unspecified; E11.9 Type 2 diabetes mellitus without complications; Z79.899 Other long term (current) drug therapy; Z88.0 Allergy status to penicillin
CPT/HCPCS: 99283

== ENCOUNTER 2019-09-24 09:23 | Outpatient (CLI) | payer MEDICARE ==
[2019-09-24 10:04] LABS: Chol/HDL Ratio 3.24 %
[2019-09-29 13:45] LABS: Vitamin D, 25-OH, D2 49 ng/mL
== END 2019-09-24 09:24 | disposition home or self-care (01) ==
LOC: LAB 09:23
PROVIDERS: ATTEND Internal Medicine
DX: E55.9 Vitamin D deficiency, unspecified (principal); E11.9 Type 2 diabetes mellitus without complications; E78.5 Hyperlipidemia, unspecified
CPT/HCPCS: 36415; 80061; 82306; 83036

== ENCOUNTER 2021-07-11 10:18 | Outpatient (CLI) | payer MEDICARE ==
[2021-07-11 11:03] LABS: Basophils # (Auto) 0.1 K/mm3 (0.0-0.1); Basophils % (Auto) 1.9 % (0.0-1.8); Eosinophils # (Auto) 0.1 K/mm3 (0.0-0.4); Eosinophils % (Auto) 1.1 % (0.0-4.3); Hematocrit 32.5 % (30.3-42.9); Hemoglobin 10.7 gm/dl (10.1-14.3); Lymphocytes # (Auto) 1.1 K/mm3 (1.2-5.4); Mean Corpuscular HGB Conc 33 % (30-34); Mean Corpuscular Volume 91 fl (79-97); Monocytes # (Auto) 0.3 K/mm3 (0.0-0.8); Monocytes % (Auto) 5.4 % (0.0-7.3); Platelet Count 271 K/mm3 (140-440); Red Blood Count 3.59 M/mm3 (3.65-5.03); Red Cell Distribution Width 15.2 % (13.2-15.2)
[2021-07-11 11:07] LABS: Alanine Aminotransferase 8 units/L (7-56); Albumin 4.1 g/dL (3.9-5); Blood Urea Nitrogen 15 mg/dL (7-17); Calcium 9.7 mg/dL (8.4-10.2); Chol/HDL Ratio 2.81 %; HDL Cholesterol 54 mg/dL (40-59); Hemolysis Index 2; LDL Cholesterol,Direct 90 mg/dL (50-130)
[2021-07-11 11:09] LABS: BUN/Creatinine Ratio 21
[2021-07-15 11:58] LABS: Vitamin D, 25-OH, D2 54 ng/mL
== END 2021-07-11 10:19 | disposition home or self-care (01) ==
LOC: LAB 10:18
PROVIDERS: ATTEND Internal Medicine
DX: Z13.29 Encounter for screening for other suspected endocrine disorder (principal); E78.5 Hyperlipidemia, unspecified; I10 Essential (primary) hypertension; E55.9 Vitamin D deficiency, unspecified; E11.9 Type 2 diabetes mellitus without complications; Z00.00 Encounter for general adult medical examination without abnormal findings
CPT/HCPCS: 36415; 80053; 80061; 82306; 83036; 84443; 85025